=== PATIENT | female | born 1950 | race Two or more races ===

== ENCOUNTER → 2023-05-04 | Outpatient (CLI) | payer OTHER, MEDICAID ==
[~2023-05-04] VITALS: Ht 167.6 cm; Wt 113.4 kg
[~2023-05-04] MED LIST: ADENOSINE 95 MG in GIVE UN-DILUTED 0 ML IV STA
== END | disposition home or self-care (01) ==
LOC: XYW 09:35
PROVIDERS: ATTEND Internal Medicine
DX: R94.31 Abnormal electrocardiogram [ECG] [EKG] (principal); R07.9 Chest pain, unspecified
CPT/HCPCS: 78452; 93017; A9500; J0153